=== PATIENT | female | born 1950 ===

== ENCOUNTER 2016-10-14 18:03 | Emergency (ER) | payer SELFPAY ==
[~2016-10-14] VITALS: Ht 170.2 cm; Wt 78.0 kg
[2016-10-14 18:07] VITALS: Ht 170.2 cm; Wt 78.0 kg
== END 2016-10-14 18:20 | disposition left against medical advice (07) ==
LOC: E/R 18:03
DX: Z53.21 Procedure and treatment not carried out due to patient leaving prior to being seen by health care provider (principal)